=== PATIENT | female | born 1970 | race Asian ===

== ENCOUNTER 2021-03-03 08:16 | Outpatient (CLI) | payer BC | END 2021-03-03 08:17 | disposition home or self-care (01) | LOC: RAD 08:16 | PROVIDERS: ATTEND Internal Medicine Critical Care Medicine | DX: R06.00 Dyspnea, unspecified (principal) | CPT/HCPCS: 71046 ==

== ENCOUNTER 2024-02-06 08:58 | Outpatient (CLI) | payer BC | END 2024-02-06 08:59 | LOC: SCSMRI 08:58 | PROVIDERS: ATTEND Family Medicine | DX: R16.0 Hepatomegaly, not elsewhere classified (principal); K76.89 Other specified diseases of liver; D18.03 Hemangioma of intra-abdominal structures | CPT/HCPCS: 74183 ==